=== PATIENT | male | born 1955 | race African-American/Black ===

== ENCOUNTER 2016-10-14 16:51 | Emergency (ER) | payer MEDICAID ==
[~2016-10-14] VITALS: Ht 177.8 cm; Wt 90.7 kg
[~2016-10-14 16:51] MED LIST: ALBUTEROL SULF8.5 GM INH; BACTROBAN22 G1 TOPIC; CIPRO500 MG PO; CIPROFLOXACIN500 M2 ORAL; CYCLOBENZAPRINE10 MG ORAL; HYDROCORTISONE28 G2 TP; IBUPROFEN800 MG ORAL; NKM; NORVIR100 MG ORAL; PODOFILOX3.5 ML TP; PROMETHAZINE-C118 M1 ORAL; ZYRTEC-D TABLE1 EACH ORAL
[2016-10-14 17:15] VITALS: BP 120/64
--- NOTE | 2016-10-14 17:43 | Emergency Room Report ---
History of Present Illness General Chief Complaint: Upper Respiratory Illness Source: Patient Present Illness HPI 61-year-old male presents emergency department with complaints of continued cough despite conservative treatment with cough syrup and albuterol. Patient was evaluated here over one week ago for acute viral URI. he denies fevers chills or productive cough. Patient denies any symptoms at this time. Patient has history of HIV with CD4 count over 800, viral load undetectable. Denies CP, Palpitations, LOC, AMS, dizziness, Changes in Vision, Sensation, paresthesias, or a sudden severe headache. Allergies: Coded Allergies: PENICILLINS (Verified Allergy, Severe, rash, 09/15/13) Patient History Past Medical History: see triage record, HIV Past Surgical History: none Pertinent Family History: none Immunizations: UTD Reviewed Nursing Documentation: PMH: Agreed, PSxH: Agreed Nursing Documentation-PMH Hx Cancer: No Review of Systems All Other Systems: negative except mentioned in HPI Physical Exam Vital Signs Date Time Temp Pulse Resp B/P Pulse Ox O2 Delivery O2 Flow Rate FiO2 10/14/16 17:04 98.2 92 15 119/82 96 Room Air Sp02 EP Interpretation: reviewed, normal General Appearance: no apparent distress, alert, GCS 15, non-toxic Head: normocephalic, atraumatic Eyes: bilateral eye PERRL, bilateral eye normal inspection ENT: hearing grossly normal, normal pharynx, no angioedema, normal voice Neck: full range of motion, supple/symm/no masses Respiratory: chest non-tender, lungs clear, normal breath sounds, no rhonchi, no respiratory distress, no retraction, no accessory muscle use, speaking full sentences, wheezing - diffuse wheezes bilaterally Cardiovascular #1: regular rate, rhythm, no edema Gastrointestinal: normal bowel sounds, non tender, soft, no guarding, no rebound Rectal: deferred Genitourinary: normal inspection, no CVA tenderness Musculoskeletal: back normal, gait/station normal, normal range of motion, non- tender, no calf tenderness Neurologic: alert, oriented x3, responsive, motor strength/tone normal, sensory intact, speech normal Psychiatric: judgement/insight normal, memory normal, mood/affect normal, no suicidal/homicidal ideation Skin: normal color, no rash, warm/dry, well hydrated Lymphatic: no adenopathy Medical Decision Making PA Attestation Dr. perla is my supervising Physician whom patient management has been discussed with. Diagnostic Impression: Primary Impression: Atypical pneumonia ER Course Pt. presents to the emergency department for continued cough x1 week despite conservative treatment including cough syrup and albuterol Ddx considered but are not limited to URI, pneumonia, PE, strep pharyngitis, meningitis, atypical pneumonia Vital signs: Pt. is afebrile, the remaining VS are WNL H&PE are most consistent with Atypical pneumonia due to persistent symptoms despite conservative treatment times one week, in addition to history of immune compromise will treat with antibiotics ORDERS: none required at this time, the diagnosis is clinical - pt non-toxic , NAD ED INTERVENTIONS: None required at this time. --PT. EDUCATION: Discussed pt pt. reasoning for rx'n abx and the importance of follow up with his PCP. DISCHARGE: At this time pt. is stable for d/c to home. Will provide printed patient care instructions, and any necessary prescriptions. Care plan and follow up instructions have been discussed with the patient prior to discharge. Last Vital Signs Date Time Temp Pulse Resp B/P Pulse Ox O2 Delivery O2 Flow Rate FiO2 10/14/16 17:15 98.0 88 17 120/64 96 Room Air Disposition: HOME, SELF-CARE Condition: Stable Scripts D-Methorphan Hb/Prometh Hcl* (PROMETHAZINE-DM SYRUP*) 118 Ml Syrup 5 ML ORAL Q6H Y for For Cough, #118 ML 0 Refills Prov: Nessa Dixon 10/14/16 Azithromycin (AZITHROMYCIN) 500 Mg Tablet 500 MG ORAL DAILY for 5 Days, TAB Prov: Nessa Dixon 10/14/16 Patient Instructions: Upper Respiratory Infection, Adult Additional Instructions: Take medications as directed. continue to take albuterol for wheezing. Follow up with PCP in 3-5 days Return sooner to ED if new symptoms occur, or current symptoms become worse. Nessa Dixon Oct 14, 2016 17:43
[2016-10-14] MEDS ORDERED: PROMETHAZINE-D118 ML ORAL (17:44)
[2016-10-14] MEDS ORDERED: AZITHROMYCIN500 MG ORAL (17:44)
[2016-10-14 17:55] VITALS: BP 126/62
== END 2016-10-14 17:55 | disposition home or self-care (01) ==
LOC: EMR 17:55
DX: J18.9 Pneumonia, unspecified organism (principal); Z88.0 Allergy status to penicillin
CPT/HCPCS: 99284

== ENCOUNTER 2017-06-15 09:35 | Inpatient (IN) | payer OTHER ==
[2017-06-15] VITALS (14 sets, daily range): BP systolic 128–151; BP diastolic 76–94
[~2017-06-15] VITALS: Ht 177.8 cm; Wt 86.6 kg
[~2017-06-15 09:35] MED LIST changes: +AZITHROMYCIN500 MG ORAL; +PROMETHAZINE-D118 ML ORAL
[2017-06-15] MEDS ORDERED: Thrombin 5000 units TOPIC ONE (09:53)
[2017-06-15] MEDS ORDERED: Bupivacaine w/Epi 0.5% 30ml Vial INJ ONE (09:54)
[2017-06-15] MEDS ORDERED: Vancomycin 1gm inj IVPB ONE (09:54)
[2017-06-15] MEDS ORDERED: Bacitracin 50000 Units Vial ONE (09:55)
[2017-06-15] MEDS ORDERED: Thrombin 5000 units spray kit TOPIC ONE (09:55)
[2017-06-15] MEDS ORDERED: Gelfoam Absorbable 1gm powder pkt TOPIC ONE (09:55)
[2017-06-15] MEDS ORDERED: Neostigmine 1mg/ml 10ml Inj ONE (11:00)
[2017-06-15] MEDS ORDERED: Ketorolac 30mg Inj ONE (11:00)
[2017-06-15] MEDS ORDERED: fentaNYL 100 mcg/2 mL IV ONE (11:00)
[2017-06-15] MEDS ORDERED: Midazolam 2mg/2ml Inj ONE (11:00)
[2017-06-15] MEDS ORDERED: Propofol 10mg/ml 100ml btl IV ONE (11:00)
[2017-06-15] MEDS ORDERED: Succinylcholine 20mg/ml 10ml vial ONE (11:00)
[2017-06-15] MEDS ORDERED: LR 1000ml ONE (11:00)
[2017-06-15] MEDS ORDERED: Sterile Water Irrig 1000ml IRRIG ONE (11:00)
[2017-06-15] MEDS ORDERED: Zemuron 50mg/5ml Inj IV ONE (11:00)
[2017-06-15] MEDS ORDERED: NS Irrig 1000ml ONE (11:00)
[2017-06-15] MEDS ORDERED: Morphine Sulfate 10mg/ml Inj ONE (11:00)
[2017-06-15] MEDS ORDERED: Glycopyrrolate 0.2mg/ml 1ml Vial ONE (11:00)
[2017-06-15] MEDS ORDERED: Hydromorphone 0.5mg/0.5ml inj IVP PRN (12:45)
[2017-06-15] MEDS ORDERED: DiphenhydrAMINE 50mg/ml Inj IVP PRN (12:45)
[2017-06-15] MEDS ORDERED: Midazolam 2mg/2ml Inj IVP PRN (12:45)
[2017-06-15] MEDS ORDERED: Meperidine 25mg/0.5ml Inj (FOR RIGORS ONLY) IV PRN (12:45)
[2017-06-15] MEDS ORDERED: fentaNYL 100 mcg/2 mL IV PRN (12:45)
[2017-06-15] MEDS ORDERED: Ketorolac 30mg Inj IV PRN (12:45)
[2017-06-15] MEDS ORDERED: LR 1000ml 1,000 ML IVLG SCH (12:45)
--- NOTE | 2017-06-15 12:45 | Anethesia Preoperative Eval ---
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 LONG TIME AGO PER PATIENT Medications: see eMAR Past Medical History Cardiovascular: Reports: HTN - mild, Denies: CAD, TN, valve dz, arrhythmia, other Pulmonary: Denies: asthma, COPD, BALWINDER, other Gastrointestinal/Genitourinary: Reports: GERD, Denies: CRI, ESRD, other Neurologic/Psychiatric: Reports: other - chronic pain, Denies: dementia, CVA, depression/anxiety, TIA Endocrine: Denies: DM, hypothyroidism, steroids, other HEENT: Denies: cataract (L), cataract (R), glaucoma, [place] (L), [place] [place] (R), other Hematology/Immune: Reports: other - HIV-AIDS, Denies: anemia, DVT, bleeding disorder Musculoskeletal/Integumentary: Denies: OA, RA, DJD, DDD, edema, other PMH Narrative: as above PSxH Narrative: bilateral lower extremities ORIF Anesthesia Pre-op Phys. Exam Physician Exam Last Vital Signs Date Time Temp Pulse Resp B/P (MAP) Pulse Ox O2 Delivery O2 Flow Rate FiO2 06/15/17 10:16 98.8 72 19 133/94 96 Room Air Constitutional: NAD Neurologic: CN 2-12 intact Cardiovascular: RRR, no M/R/G Respiratory: CTA Gastrointestinal: S/NT/ND Airway Exam Mallampati Score: Class II MO: full Neck: flexible Teeth: missing Dentures: upper, lower Anesthesia Pre-op A/P Labs See chart Studies Pre-op Studies: EKG - NSR, CXR - WNL Risk Assessment & Plan Assessment: ASA 3 Plan: GA with ETT prone position, neuromonitoring Status Change Before Surgery: No Pre-Antibiotics Drug: Ancef 2gr. Given Within 1 Hr of Incision: Yes Time Given: 12:16 MAI VARNER M.D. Jun 15, 2017 12:44
--- NOTE | 2017-06-15 13:24 | Pre-Procedure Note/Attestation ---
Pre-Procedure Note/Attestation Complete Prior to Procedure Planned Procedure: left Procedure Narrative: L45 microdecompression and microdiscectomy Indications for Procedure Pre-Operative Diagnosis: hnp with lumbar radic Attestation I attest that I discussed the nature of the procedure; its benefits; risks and complications; and alternatives (and the risks and benefits of such alternatives ), prior to the procedure, with the patient (or the patient's legal commercial sales representative). I attest that, if there was a reasonable possibility of needing a blood transfusion, the patient (or the patient's legal commercial sales representative) was given the [facility] standardized written summary, pursuant to the Óscar Greenleaf Blood Safety Act ([place] Health and Safety Code # 1645, as amended). I attest that I re-evaluated the patient just prior to the surgery and that there has been no change in the patient's H&P, except as documented below: LEILA HUFF Jun 15, 2017 13:24
--- NOTE | 2017-06-15 13:25 | Brief Operative Note ---
Immediate Post Operative Note Operative Note Pre-op Diagnosis: hnp with lumbar radic Procedure: l l45 microdecompression and microdiscectomy Post-op Diagnosis: hnp with lumbar radiculopathy Findings: consistent w/pre-op dx studies Surgeon: iqra Road Engineer: she smith nurse assist Anesthesiologist: adilia Anesthesia: general Specimen: none Complications: none Condition: stable Fluids: 1 liter Estimated Blood Loss: minimal - 10cc Drains: none Implant(s) used?: No LEILA HUFF Jun 15, 2017 13:25
[2017-06-15] MEDS ORDERED: HYDROmorphone 1mg/ml Carpuject SUBQ PRN (13:30)
[2017-06-15] MEDS ORDERED: Norco 7.5mg/325mg tab ORAL PRN (13:30)
[2017-06-15] MEDS ORDERED: Naloxone 0.4mg/ml Inj IVP PRN (13:30)
[2017-06-15] MEDS ORDERED: HYDROmorphone 1mg/ml Carpuject IVP PRN (13:30)
--- NOTE | 2017-06-15 14:12 | Immediate Post-Op Evaluation ---
Immediate Post-Op Evalulation Immediate Post-Op Evalulation Procedure: L4-L5 laminotomy with discectomy Date of Evaluation: Jun 15, 2017 Time of Evaluation: 14:10 IV Fluids: 1400 Blood Products: none Estimated Blood Loss: <50 Urinary Output: 150 Blood Pressure Systolic: 132 Blood Pressure Diastolic: 72 Pulse Rate: 86 Respiratory Rate: 20 O2 Sat by Pulse Oximetry: 99 Temperature (Fahrenheit): 97.4 Pain Score (1-10): 2 Nausea: No Vomiting: No Complications none Patient Status: reacts, patent, extubated, none Hydration Status: adequate MAI VARNER M.D. Jun 15, 2017 14:12
[2017-06-15] MEDS ORDERED: DuoNeb 0.5-3(2.5)mg/3ml neb HHN PRN (16:15)
[2017-06-15] MEDS ORDERED: Promethazine/Codeine 5ml UD ORAL PRN (16:15)
[2017-06-15] MEDS: D5 1/2NS 1,000 ML IV SCH (17:13)
[2017-06-15] MEDS ORDERED: Ritonavir 100mg tab ORAL SCH (18:00)
[2017-06-15] MEDS: Docusate 100mg cap ORAL SCH (18:17)
[2017-06-15] MEDS: ceFAZolin sod 1 GM in D5W 55 ML IV SCH (21:33)
[2017-06-16] VITALS: BP 132/73
[2017-06-16 04:00] VITALS: BP 117/78
[2017-06-16] MEDS: ceFAZolin sod 1 GM in D5W 55 ML IV SCH ×2 (04:04→11:28)
[2017-06-16] MEDS: D5 1/2NS 1,000 ML IV SCH ×4 (04:04→22:15)
[2017-06-16 07:33] LABS: BASOPHILS % (AUTO) 0.7 % (0.0-2.0); EOSINOPHILS % (AUTO) 1.6 % (0.0-3.0); LYMPHOCYTES % (AUTO) 17.5 % (20.0-45.0); MEAN CORPUSCULAR HEMOGLOBIN 34.6 PG (27.0-31.0); MEAN CORPUSCULAR HGB CONC 34.5 G/DL (32.0-36.0); MEAN CORPUSCULAR VOLUME 100 FL (80-99); MEAN PLATELET VOLUME 7.8 FL (6.5-10.1); MONOCYTES % (AUTO) 10.2 % (1.0-10.0); PLATELET COUNT 175 K/UL (150-450); RED CELL DISTRIBUTION WIDTH 12.1 % (11.6-14.8); WHITE BLOOD COUNT 4.3 K/UL (4.8-10.8)
[2017-06-16 08:05] LABS: ALANINE AMINOTRANSFERASE 12 U/L (3-41); ALBUMIN/GLOBULIN RATIO 1.3 (1.0-2.7); ANION GAP 8 (5-15); ASPARTATE AMINO TRANSFERASE 15 U/L (5-40); CALCIUM 8.8 mg/dL (8.6-10.2); CARBON DIOXIDE 29 mEQ/L (20-30); CHLORIDE 101 mEQ/L (98-107); GLOMERULAR FILTRATION RATE > 60 mL/min (>60); HEMOLYSIS 5; POTASSIUM 3.7 mEQ/L (3.4-4.9); SODIUM 138 mEQ/L (135-145); TOTAL PROTEIN 6.5 g/dL (6.6-8.7)
[2017-06-16 08:23] VITALS: BP 115/76
[2017-06-16] MEDS: Docusate 100mg cap ORAL SCH ×2 (08:36→17:24)
--- NOTE | 2017-06-16 09:57 | 48 Hour Post Anesthesia Eval ---
Post Anesthesia Evaluation Procedure: L4-L5 laminotomy with discectomy Date of Evaluation: Jun 16, 2017 Time of Evaluation: 09:55 Blood Pressure Systolic: 128 0: 72 Pulse Rate: 68 Respiratory Rate: 20 Temperature (Fahrenheit): 97.6 O2 Sat by Pulse Oximetry: 98 Airway: patent Nausea: No Vomiting: No Pain Intensity: 3 Hydration Status: adequate Cardiopulmonary Status: stable Mental Status/LOC: patient returned to baseline Follow-up Care/Observations: n/a Post-Anesthesia Complications: none Follow-up care needed: N/A MAI VARNER M.D. Jun 16, 2017 09:57
[2017-06-16 11:40] VITALS: BP 108/56
--- NOTE | 2017-06-16 14:09 | Consultation ---
Consult Note Consult Note Patient seen and examined. Dictation # [id number] Juan J Gonzalez MD Jun 16, 2017 14:09
--- NOTE | 2017-06-16 14:12 | General Progress Note ---
Assessment/Plan Status: stable Assessment/Plan 1- Lumbar Spondylosis: post Discectomy 2- HIV 3- Pain management Plan: Medicably stable. HIV management deferred to outpatient current management per Dr Mera Subjective ROS Limited/Unobtainable: No Constitutional: Reports: no symptoms HEENT: Reports: no symptoms Cardiovascular: Reports: no symptoms Allergies: Coded Allergies: PENICILLINS (Verified Allergy, Severe, RASH, 06/15/17) DONT REMEMBER REACTION. LONG TIME AGO PER PATIENT Objective Last 24 Hour Vital Signs Date Time Temp Pulse Resp B/P (MAP) Pulse Ox O2 Delivery O2 Flow Rate FiO2 06/16/17 11:40 97.6 68 21 108/56 92 Room Air 06/16/17 09:57 68 20 98 06/16/17 09:08 97.5 06/16/17 08:23 97.5 74 20 115/76 99 Room Air 06/16/17 07:25 98 Nasal Cannula 2.0 06/16/17 07:24 Nasal Cannula 2.0 06/16/17 04:00 97.2 74 18 117/78 99 Nasal Cannula 2.0 06/16/17 00:00 97.5 78 16 132/73 99 Nasal Cannula 3.0 06/15/17 20:00 97.2 80 18 128/79 100 Nasal Cannula 2.0 06/15/17 16:30 97.3 63 21 141/82 99 Nasal Cannula 06/15/17 16:00 98.1 61 20 146/83 99 Nasal Cannula 06/15/17 15:02 98.0 57 12 140/79 100 Nasal Cannula 3.0 06/15/17 14:55 68 13 151/84 100 Nasal Cannula 3.0 06/15/17 14:50 56 12 142/79 100 Nasal Cannula 3.0 06/15/17 14:45 64 14 128/79 100 Nasal Cannula 3.0 06/15/17 14:40 67 15 144/82 100 Nasal Cannula 3.0 06/15/17 14:30 64 13 139/82 100 Nasal Cannula 3.0 06/15/17 14:20 76 14 143/82 100 Nasal Cannula 3.0 06/15/17 14:12 86 20 99 06/15/17 14:10 73 16 145/91 100 Simple Mask 6.0 Intake and Output 06/16/17 06/17/17 19:00 07:00 Intake Total 895 ml Output Total 200 ml Balance 695 ml Intake Oral 340 ml IV Total 555 ml Output Urine Total 200 ml # Voids 1 Laboratory Tests 06/16/17 06:15: White Blood Count 4.3L, Red Blood Count 4.30L, Hemoglobin 14.9, Hematocrit 43.1 , Mean Corpuscular Volume 100H, Mean Corpuscular Hemoglobin 34.6H, Mean Corpuscular Hemoglobin Concent 34.5, Red Cell Distribution Width 12.1, Platelet Count 175, Mean Platelet Volume 7.8, Neutrophils (%) (Auto) 70.0, Lymphocytes (% ) (Auto) 17.5L, Monocytes (%) (Auto) 10.2H, Eosinophils (%) (Auto) 1.6, Basophils (%) (Auto) 0.7, Sodium Level 138, Potassium Level 3.7, Chloride Level 101, Carbon Dioxide Level 29, Anion Gap 8, Blood Urea Nitrogen 12, Creatinine 1.0, Estimat Glomerular Filtration Rate > 60, Glucose Level 97, Calcium Level 8.8, Total Bilirubin 0.5, Aspartate Amino Transf (AST/SGOT) 15, Alanine Aminotransferase (ALT/SGPT) 12, Alkaline Phosphatase 52, Total Protein 6.5L, Albumin 3.7, Globulin 2.8, Albumin/Globulin Ratio 1.3 Height (Feet): 5 Height (Inches): 10.00 Weight (Pounds): 191 General Appearance: WD/WN EENT: PERRL/EOMI Neck: supple Cardiovascular: normal rate Respiratory/Chest: lungs clear Abdomen: soft Extremities: other Neurologic: rn post partum II-XII grossly normal Juan J Gonzalez MD Jun 16, 2017 14:11
[2017-06-16 15:49] VITALS: BP 141/76
[2017-06-16] MEDS: Norco 5mg/325mg tab ORAL PRN ×2 (17:04→20:51)
[2017-06-16 20:00] VITALS: BP 136/79
[2017-06-16] MEDS: TRIAMCINOLONE ACETONIDE 0.1% TOPIC SCH (20:59)
[2017-06-16] MEDS: Norco 7.5mg/325mg tab ORAL PRN (22:10)
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
[2017-06-17 00:43] VITALS: BP 129/75
[2017-06-17 04:33] VITALS: BP 130/70
[2017-06-17 07:02] LABS: BASOPHILS % (AUTO) 1.5 % (0.0-2.0); EOSINOPHILS % (AUTO) 3.6 % (0.0-3.0); LYMPHOCYTES % (AUTO) 25.1 % (20.0-45.0); MEAN CORPUSCULAR HEMOGLOBIN 33.3 PG (27.0-31.0); MEAN CORPUSCULAR HGB CONC 33.7 G/DL (32.0-36.0); MEAN CORPUSCULAR VOLUME 99 FL (80-99); MEAN PLATELET VOLUME 7.7 FL (6.5-10.1); MONOCYTES % (AUTO) 14.4 % (1.0-10.0); NEUTROPHILS % (AUTO) 55.5 % (45.0-75.0); PLATELET COUNT 191 K/UL (150-450); RED BLOOD COUNT 4.27 M/UL (4.70-6.10); RED CELL DISTRIBUTION WIDTH 11.9 % (11.6-14.8); WHITE BLOOD COUNT 4.2 K/UL (4.8-10.8)
[2017-06-17 07:23] LABS: ALANINE AMINOTRANSFERASE 14 U/L (3-41); ALBUMIN/GLOBULIN RATIO 1.1 (1.0-2.7); ANION GAP 7 (5-15); ASPARTATE AMINO TRANSFERASE 17 U/L (5-40); CALCIUM 8.6 mg/dL (8.6-10.2); CARBON DIOXIDE 30 mEQ/L (20-30); CHLORIDE 105 mEQ/L (98-107); CREATININE 1.1 mg/dL (0.7-1.2); GLOMERULAR FILTRATION RATE > 60 mL/min (>60); HEMOLYSIS 4; SODIUM 142 mEQ/L (135-145); TOTAL PROTEIN 6.1 g/dL (6.6-8.7)
[2017-06-17] MEDS: Docusate 100mg cap ORAL SCH (07:53)
[2017-06-17] MEDS: Norco 7.5mg/325mg tab ORAL PRN ×2 (07:54→14:46)
[2017-06-17] MEDS: TRIAMCINOLONE ACETONIDE 0.1% TOPIC SCH (07:54)
[2017-06-17 08:00] VITALS: BP 117/77
[2017-06-17] MEDS ORDERED: NORCO 5-325 TA1 EACH ORAL (08:59)
[2017-06-17] MEDS ORDERED: NAPROSYN500 M1 ORAL (09:00)
[2017-06-17 12:00] VITALS: BP 124/77
[2017-06-17] MEDS ORDERED: NORCO 7.5-3251 EACH ORAL (12:59)
--- NOTE | 2017-06-17 15:47 | General Progress Note ---
Assessment/Plan Status: stable Assessment/Plan 1- Lumbar Spondylosis: post Discectomy 2- HIV 3- Pain management Plan: Medicably stable. HIV management deferred to outpatient current management per Dr Mera Subjective ROS Limited/Unobtainable: No Constitutional: Reports: no symptoms HEENT: Reports: no symptoms Cardiovascular: Reports: no symptoms Allergies: Coded Allergies: PENICILLINS (Verified Allergy, Severe, RASH, 06/15/17) DONT REMEMBER REACTION. LONG TIME AGO PER PATIENT Objective Last 24 Hour Vital Signs Date Time Temp Pulse Resp B/P (MAP) Pulse Ox O2 Delivery O2 Flow Rate FiO2 06/17/17 12:00 98.5 86 21 124/77 99 Room Air 06/17/17 08:53 98.1 06/17/17 08:00 98.4 78 20 117/77 98 Room Air 06/17/17 07:45 Room Air 06/17/17 07:45 97 Room Air 06/17/17 07:45 72 18 Room Air 06/17/17 04:33 98.1 83 19 130/70 95 Room Air 06/17/17 00:43 97.9 85 18 129/75 94 Room Air 06/16/17 20:04 Room Air 06/16/17 20:04 97 Room Air 06/16/17 20:04 76 18 Room Air 06/16/17 20:00 98.5 82 18 136/79 95 Nasal Cannula 06/16/17 18:04 97.6 06/16/17 15:49 97.6 74 20 141/76 98 Room Air Intake and Output 06/17/17 06/18/17 19:00 07:00 Intake Total 480 ml Balance 480 ml Intake Oral 480 ml # Voids 2 Laboratory Tests 06/17/17 05:10: White Blood Count 4.2L, Red Blood Count 4.27L, Hemoglobin 14.2, Hematocrit 42.1 , Mean Corpuscular Volume 99, Mean Corpuscular Hemoglobin 33.3H, Mean Corpuscular Hemoglobin Concent 33.7, Red Cell Distribution Width 11.9, Platelet Count 191, Mean Platelet Volume 7.7, Neutrophils (%) (Auto) 55.5, Lymphocytes (% ) (Auto) 25.1, Monocytes (%) (Auto) 14.4H, Eosinophils (%) (Auto) 3.6H, Basophils (%) (Auto) 1.5, Sodium Level 142, Potassium Level 4.0, Chloride Level 105, Carbon Dioxide Level 30, Anion Gap 7, Blood Urea Nitrogen 11, Creatinine 1.1, Estimat Glomerular Filtration Rate > 60, Glucose Level 93, Calcium Level 8.6, Total Bilirubin 0.5, Aspartate Amino Transf (AST/SGOT) 17, Alanine Aminotransferase (ALT/SGPT) 14, Alkaline Phosphatase 48, Total Protein 6.1L, Albumin 3.3L, Globulin 2.8, Albumin/Globulin Ratio 1.1 Height (Feet): 5 Height (Inches): 10.00 Weight (Pounds): 191 General Appearance: no apparent distress EENT: PERRL/EOMI Neck: supple Cardiovascular: normal rate Respiratory/Chest: lungs clear Abdomen: soft Extremities: other - minimal decreaed ROM in lumbar spine Neurologic: section leader screen printing II-XII grossly normal Juan J Gonzalez MD Jun 17, 2017 15:47
[2017-06-17] MEDS ORDERED: D5 1/2NS 1000ml IV ONE (15:59)
[2017-06-17] MEDS ORDERED: Tubing IV Secondary IV ONE (15:59)
--- NOTE | 2017-06-17 19:45 | Operative Note - Dictated ---
DATE OF OPERATION: 06/15/2017 PREOPERATIVE DIAGNOSES: L4-L5 disk protrusion with anterolisthesis and stenosis and left lower extremity radiculopathy and intermittent right lower extremity neurologic symptoms with stable spondylolisthesis at L4-L5. POSTOPERATIVE DIAGNOSES: L4-L5 disk protrusion with anterolisthesis and stenosis and left lower extremity radiculopathy and intermittent right lower extremity neurologic symptoms with stable spondylolisthesis at L4-L5. PROCEDURES PERFORMED: 1. Left-sided L4-5 interlaminar laminotomy, medial facetectomy, foraminotomy, and microdiskectomy. 2. Intraoperative use of microscope. 3. Intraoperative use of fluoroscopy. SURGEON: Michael Mera M.D. BUILDING PERFORMANCE CONSULTANT: Christina Campos, registered nurse showroom sales assistant. ANESTHESIA: General endotracheal anesthesia. ANESTHESIOLOGIST: Torito Mccormick M.D. INTRAOPERATIVE FINDINGS: Left-sided L4-5 foraminal stenosis and lateral recess stenosis, impingement, and disk protrusion. ESTIMATED BLOOD LOSS: 10 mL. INDICATIONS: This is a pleasant gentleman, who presented with low back pain with left lower extremity radiculopathy and intermittent right lower extremity neurologic symptoms. He failed nonoperative treatment and continued to have pain that affected his activities of daily living. Option for above treatment was made. Risks, alternatives, and benefits were discussed with the patient at length and the patient wished to proceed. Preoperative physical examination revealed a positive straight leg raise on the left at 45 degrees with weakness in the EHL and peroneus longus on the left side, 4/5. Risks, alternatives, and benefits were discussed with the patient at length. Risks include, but not limited to anesthesia complications including , medical complications including liver, kidney, cardiopulmonary deficits, infection, bleeding, dural tear, CSF leak, nerve root injury, pars fracture, instability, reherniation as well as continued symptoms. DESCRIPTION OF OPERATION: The patient was brought into the operating room supine on a stretcher. Subsequently, appropriate IV lines were placed and 2 g of Ancef was administered. Anesthesia was induced. The patient was successfully intubated. Sequential compression devices were placed on to the bilateral lower extremities. Bauman was placed under sterile conditions. The patient was turned prone onto the Nayan frame table. All bony prominences were well padded. The abdomen was assured to lay freely. The L4-L5 interspace was positively identified with fluoroscopy and an indelible marker was used to bess the midline. The patient was prepped and draped in usual sterile fashion. The intraoperatively sterilely draped microscope was brought into the field. An one inch incision was carried out over the L4-L5 interspace. Superficial hemostasis was achieved. The L4 and L5 laminas were located and subperiosteally dissected while leaving a facet joint capsule intact. Retractors were set in place and at this point, the radiopaque marker was placed at the level of the L5 pedicle. Lateral fluoroscopy revealed the marker to be at the L5 pedicle and the L4-L5 interspace was positively identified with the use of a high-speed drill, straight and curved curettes, as well as #2 through #5 Kerrison punches, and nerve hook, an interlaminar laminotomy, medial facetectomy, and foraminotomy was done. The ligamentum flavum was removed. There was significant compression on the thecal sac as well as the traversing and exiting nerve roots at the L4-L5 level. A foraminotomy ensued with a #2 Kerrison punch. A decompression entailed and with a #4 [place] retractor, the neural elements were carefully retracted medially and the disk protrusion was found causing impingement on the traversing and exiting nerve roots. At this point, hemostasis was achieved. With an #11 blade, a cross incision was placed into the anulus. With the use of a Thurston as well as a Peapod as well as Shannon as well as Patricia, diskectomy was carried out and all disk material was removed until the floor of the canal was flat. Disk space irrigation was used and all loose debri was removed. At this point, Valsalva 40 mmHg was done. There was no CSF leak and a complete decompression was assured in the foramina lateral recess and centrally in the central canal. Now the wound was copiously irrigated with triple antibiotic solution, 1 gram of vancomycin powder was placed. The dorsal lumbar fascia was closed with #1 Vicryl sutures in a watertight interrupted fashion. The subdermal layer was closed with 2-0 Vicryl suture. The subcuticular layer was closed with 4-0 Monocryl. The Dermabond and sterile tape and dressing was placed. All sponge, needle, and instrument counts were correct. There was no complication during the case. Final EBL was 10 mL. The patient now was turned supine, was extubated in stable condition, was taken to the recovery room in stable condition and found to be neurovascularly intact, and admitted to the hospital for monitoring. Michael Mera M.D. DR: EFRAIN JOB#: [id number] CC:
--- NOTE | 2017-06-20 11:12 | Discharge Summary ---
Discharge Summary Hospital Course Date of Admission Jun 15, 2017 at 09:35 Date of Discharge Jun 17, 2017 at 16:00 Admitting Diagnosis lumbar spondylosis Reason for Hospitalization: elective surgery HPI Robby Mcdaniel is a 62 year old male who was admitted on Jun 15, 2017 at 09:35 for lumbar spondylosis and elective surgery Consultations dr Gonzalez Procedures s/pm 06/15/[address] Mera 1. Left-sided L4-5 interlaminar laminotomy, medial facetectomy, foraminotomy, and microdiskectomy. 2. Intraoperative use of microscope. 3. Intraoperative use of fluoroscopy. Hospital Course s/p surgery course of recovery uneventful neurovascular intact incision C/D/I pain management -controlled PT eval and Rx, ambulated tolerated diet voided freely DVT GI prophylaxis ART medications resume as outpatient ( and fup with ID/HIV specialist as outpatient) surgeon cleared for dc fup woth surgeon as outpatient as advised by surgeon FINAL DIAGNOSES herniated nucleus pulposus s/p L4-L5 microdecompression and microdiscectomy L4-L5 disk protrusion with anterolisthesis, stenosis , LLE radiculopathy and intermittent right lower extremity neurologic symptoms HIV status Discharge Medications Continued Medications: Albuterol Sulfate* (Albuterol Sulfate Mdi*) 8.5 Gm Hfa.aer.ad 2 PUFF INH Q4H, #1 INH 0 Refills Cetirizine Hcl/Pseudoephedrine (Zyrtec-D Tablet) 1 Each Tab.er.12h 1 EACH ORAL Q12HR for 7 Days, #14 TAB Hydrocodone Bit/Acetaminophen 7.5-325* ([place] 7.5-325*) 1 Each Tablet 1 TAB ORAL Q8HR PRN for For Pain, #30 TAB 0 Refills Ritonavir* (Norvir*) 100 Mg Capsule Unknown Dose ORAL TWICE A DAY, #60 CAP Discontinued Medications: Azithromycin (Azithromycin) 500 Mg Tablet 500 MG ORAL DAILY for 5 Days, TAB Codeine/Promethazine Hcl* (Promethazine-Codeine Syrup*) 118 Ml Syrup 5 ML ORAL Q6H PRN for For Cough, #200 ML 0 Refills D-Methorphan Hb/Prometh Hcl* (Promethazine-Dm Syrup*) 118 Ml Syrup 5 ML ORAL Q6H PRN for For Cough, #118 ML 0 Refills Hydrocodone Bit/Acetaminophen 5-325* ([place] 5-325*) 1 Each Tablet 1 TAB ORAL Q6H PRN for For Pain, #10 TAB 0 Refills Naproxen* (Naprosyn*) 500 Mg Tablet 500 MG ORAL TWICE A DAY, TAB Discharge Condition Upon Discharge: stable Discharge Disposition Patient was discharged to Home (01) Discharge Diagnoses: Discharge Instructions Discharge Instructions Special Instructions I have been assigned to complete a D/C Summary on this account. I was not involved in the patient management Yesi Bernal NP ([place]) Jun 20, 2017 11:12
== END 2017-06-17 16:00 | disposition home or self-care (01) | DRG 518 ==
LOC: SDSOVERFLO 09:35 → 3E 15:30
PROC: 01NB0ZZ Release Lumbar Nerve, Open Approach (ICD-10-PCS; principal; 2017-06-15 11:30)
PROC: 0SB20ZZ Excision of Lumbar Vertebral Disc, Open Approach (ICD-10-PCS; principal; 2017-06-15 11:30)
DX: M51.16 Intervertebral disc disorders with radiculopathy, lumbar region (principal); B20 Human immunodeficiency virus [HIV] disease; M48.06 Spinal stenosis, lumbar region; M43.16 Spondylolisthesis, lumbar region; Z87.891 Personal history of nicotine dependence; Z88.0 Allergy status to penicillin; V89.2XXS Person injured in unspecified motor-vehicle accident, traffic, sequela
CPT/HCPCS: 36415; 72020; 76000; 80053; 85025; 87081; 94003; 94150; 94664; 94760; J2250; J2405; J2710

== ENCOUNTER 2017-09-11 05:42 | Emergency (ER) | payer MEDICAID, OTHER ==
[~2017-09-11] VITALS: Ht 177.8 cm; Wt 88.5 kg
[~2017-09-11 05:42] MED LIST changes: +NAPROSYN500 M1 ORAL; +NORCO 5-325 TA1 EACH ORAL; +NORCO 7.5-3251 EACH ORAL
[2017-09-11 05:51] VITALS: BP 135/79
[2017-09-11] MEDS ORDERED: GENVOYA TABLET1 EACH PO (05:52)
[2017-09-11] MEDS ORDERED: ADULT WAL-100 MG/5 M ORAL (07:07)
[2017-09-11 07:11] VITALS: BP 138/71
--- NOTE | 2017-09-11 10:58 | Diagnostic Imaging Report ---
Indication: Dyspnea Comparison: 05/08/15 A single view chest radiograph was obtained. Findings: Cardiomediastinal appearance is within normal limits for age. Pulmonary vascularity is appropriate. The diaphragmatic contour is smooth and costophrenic angles are sharp. No pleural effusions are identified. The bones are unremarkable. Impression: No acute findings
--- NOTE | 2017-09-12 18:38 | Cardiology Report ---
APPROVED REPORT EKG Measurement Heart [id number] Normal sinus rhythm Normal ECG
--- NOTE | 2017-09-13 07:31 | Emergency Room Report ---
History of Present Illness General Chief Complaint: Upper Respiratory Illness Present Illness HPI Patient is a 62-year-old male presented after increased cough. The patient reportedly had been ill for approximately 3 days. He had intermittent cough. He reports having some increased sputum production. He had prior history of pneumonia and HIV. He had not been having a fever. He denied any vomiting or diarrhea. Patient gradual onset of symptoms Allergies: Coded Allergies: PENICILLINS (Verified Allergy, Severe, RASH, 06/15/17) DONT REMEMBER REACTION. LONG TIME AGO PER PATIENT Patient History Past Medical History: see triage record Reviewed Nursing Documentation: PMH: Agreed, PSxH: Agreed Nursing Documentation-PMH Hx Cardiac Problems: No - HIV+ Hx Cancer: No Hx Gastrointestinal Problems: No Hx Neurological Problems: No Review of Systems All Other Systems: negative except mentioned in HPI Physical Exam Vital Signs Date Time Temp Pulse Resp B/P (MAP) Pulse Ox O2 Delivery O2 Flow Rate FiO2 09/11/17 05:47 97.2 74 18 135/79 95 Room Air Sp02 EP Interpretation: reviewed, normal General Appearance: normal inspection, well appearing, no apparent distress, alert, GCS 15 Head: atraumatic ENT: normal ENT inspection, hearing grossly normal, normal voice Neck: normal inspection, full range of motion, supple, no bony tend Respiratory: normal inspection, lungs clear, normal breath sounds, no respiratory distress, no retraction, no wheezing Cardiovascular #1: regular rate, rhythm, no edema Gastrointestinal: normal inspection, normal bowel sounds, non tender, soft, no guarding, no hernia Genitourinary: no CVA tenderness Musculoskeletal: normal inspection, back normal, normal range of motion Neurologic: normal inspection, alert, responsive, speech normal Psychiatric: normal inspection, judgement/insight normal, mood/affect normal Skin: normal inspection, normal color, no rash Medical Decision Making Diagnostic Impression: Primary Impression: Upper respiratory infection ER Course Patient presented for cough. Differential diagnosis included but was not limited to bronchitis, pneumonia, pulmonary embolism, pericarditis, asthma, foreign body. Patient's benign exam and does not appear to require any laboratory testing at this time. Patient presented upper respiratory infection and doesn not appear to require antibiotics at this time.The patient is advised to follow up with primary care doctor in 1-2 days for reevaluation. Patient is advised to return if any worsening condition or if any changes in status that are concerning. EKG Diagnostic Results Rate: normal Rhythm: NSR ST Segments: no acute changes Chest X-Ray Diagnostic Results Chest X-Ray Diagnostic Results : Chest X-Ray Ordered: Yes # of Views/Limited/Complete: 1 View Indication: Shortness of Breath EP Interpretation: Yes PA Xray: Interpretation reviewed Interpretation: no consolidation, no effusion, no pneumothorax, no acute cardiopulmonary disease Impression: No acute disease Electronically Signed by: Electronically signed by Dr. Deepak Bullock M.D. Last Vital Signs Date Time Temp Pulse Resp B/P (MAP) Pulse Ox O2 Delivery O2 Flow Rate FiO2 09/11/17 07:11 97.5 71 16 138/71 99 Room Air Status: improved Disposition: HOME, SELF-CARE Condition: Stable Scripts Guaifenesin* (ADULT WAL-TUSSIN*) 100 Mg/5 Ml Liquid 10 ML ORAL Q4H, #120 ML Prov: Deepak Bullock 09/11/17 Patient Instructions: Upper Respiratory Infection, Adult Deepak Bullock Sep 13, 2017 07:30
== END 2017-09-11 07:11 | disposition home or self-care (01) ==
LOC: EMR 06:07
DX: J06.9 Acute upper respiratory infection, unspecified (principal); Z88.0 Allergy status to penicillin
CPT/HCPCS: 71010; 93005; 99283

== ENCOUNTER 2018-08-12 18:04 | Emergency (ER) | payer MEDICAID ==
[~2018-08-12] VITALS: Ht 175.3 cm; Wt 89.4 kg
[~2018-08-12 18:04] MED LIST changes: +ADULT WAL-100 MG/5 M ORAL; +GENVOYA TABLET1 EACH PO
[2018-08-12 18:10] VITALS: BP 131/87
--- NOTE | 2018-08-12 18:34 | Emergency Room Report ---
History of Present Illness General Chief Complaint: Animal Bite Source: Patient Present Illness HPI 43-year-old male presents to the emergency department complaining of 3 very itchy insect bites to which on the right forearm and the third on the left elbow. Patient reports lesions occurred overnight. Patient reports progressive swelling and erythema especially around 1 insect bite in particular. Patient states he has been doing his best not to scratch. Patient reports history of HIV. He states he's been taking his medications regularly and has had normal CD4 counts and his last visits. Patient states he is not sure if he is up-to-date with tetanus he states he is up-to-date with his flu shot.Pt. denies fevers, chills or swollen tender lymph nodes. Denies lesions/ rashes elsewhere on the body. Denies new medications or body washes or creams. Denies swelling of the lips, tongue , throat or airway. Denies wheezing, or shortness of breath. Denies recent travel, recent illness or ill contacts. denies blisters, oral lesions, or sloughing of the skin Allergies: Coded Allergies: PENICILLINS (Verified Allergy, Severe, RASH, 06/15/17) DONT REMEMBER REACTION. LONG TIME AGO PER PATIENT Patient History Past Medical History: see triage record Past Surgical History: none Pertinent Family History: none Reviewed Nursing Documentation: PMH: Agreed; PSxH: Agreed Nursing Documentation-PMH Past Medical History: No History, Except For Hx Cardiac Problems: No - HIV+ Hx Cancer: No Hx Gastrointestinal Problems: No Hx Neurological Problems: No Review of Systems All Other Systems: negative except mentioned in HPI Physical Exam Vital Signs Date Time Temp Pulse Resp B/P (MAP) Pulse Ox O2 Delivery O2 Flow Rate FiO2 08/12/18 18:10 97.6 74 16 131/87 95 Room Air Sp02 EP Interpretation: reviewed, normal General Appearance: no apparent distress, alert, GCS 15, non-toxic Head: normocephalic, atraumatic Eyes: bilateral eye normal inspection, bilateral eye PERRL ENT: hearing grossly normal, normal voice Neck: full range of motion Respiratory: lungs clear, normal breath sounds, speaking full sentences Cardiovascular #1: regular rate, rhythm, normal capillary refill Cardiovascular #2: 2+ radial (R), 2+ radial (L) Musculoskeletal: back normal, gait/station normal, normal range of motion Neurologic: alert, oriented x3, responsive, motor strength/tone normal, sensory intact, normal gait, speech normal, grossly normal Psychiatric: judgement/insight normal Skin: warm/dry, well hydrated, other - three discrete lesions. localized circular areas of erythema, warmth and induration, some excoriations noted. the right forearm has the largest. no palpable fluctuance, blisters or vessicles. Medical Decision Making PA Attestation Dr. Bullock is my supervising Physician whom patient management has been discussed with. Diagnostic Impression: Primary Impression: Insect bites of multiple sites, infected ER Course 43-year-old male presents to the emergency department complaining of 3 very itchy insect bites to which on the right forearm and the third on the left elbow. Patient reports lesions occurred overnight. Patient reports progressive swelling and erythema especially around 1 insect bite in particular. Patient states he has been doing his best not to scratch. Patient reports history of HIV. He states he's been taking his medications regularly and has had normal CD4 counts and his last visits. Patient states he is not sure if he is up-to-date with tetanus he states he is up-to-date with his flu shot.Pt. denies fevers, chills or swollen tender lymph nodes. Denies lesions/ rashes elsewhere on the body. Denies new medications or body washes or creams. Denies swelling of the lips, tongue , throat or airway. Denies wheezing, or shortness of breath. Denies recent travel, recent illness or ill contacts. denies blisters, oral lesions, or sloughing of the skin Ddx considered but are not limited to cellulitis, scabies, insect bites, tic bites, spider bites, contact dermatitis, Drug reaction, allergic reaction, fungal infection, lice. Vital signs: are WNL, pt. is afebrile H&PE are most consistent with insect bites , one with secondary bacterial infection. ORDERS: none required at this time, the diagnosis is clinical ED INTERVENTIONS: -Hydrocortisone cream TP. -Tdap vaccination administered. DISCHARGE: At this time pt. is stable for d/c to home. Will provide printed patient care instructions, and any necessary prescriptions. Care plan and follow up instructions have been discussed with the patient prior to discharge. Last Vital Signs Date Time Temp Pulse Resp B/P (MAP) Pulse Ox O2 Delivery O2 Flow Rate FiO2 08/12/18 18:12 97.5 75 20 131/87 94 Room Air Disposition: HOME, SELF-CARE Condition: Stable Patient Instructions: Insect Bite, [id number] Additional Instructions: Take medications as directed. Follow up with a Primary Care Provider in 3-5 days, even if your symptoms have resolved. --Please review list of primary care clinics, if you do not already have a primary care provider Return sooner to ED if new symptoms occur, or current symptoms become worse. - Please note that this Emergency Department Report was dictated using [employer] software engineer technology software, occasionally this can lead to erroneous entry secondary to interpretation by the dictation equipment. Nessa Dixon Aug 12, 2018 18:34
[2018-08-12] MEDS ORDERED: MUPIROCIN22 GM TOPIC (18:44)
[2018-08-12] MEDS ORDERED: CEPHALEXIN500 MG ORAL (18:44)
[2018-08-12] MEDS ORDERED: Tetanus/Diptheria/Pertussis Vaccine 0.5ml Syr IM ONE (18:45)
[2018-08-12 18:58] VITALS: BP 131/87
== END 2018-08-12 18:59 | disposition home or self-care (01) ==
LOC: EMR 18:26
DX: S50.861A Insect bite (nonvenomous) of right forearm, initial encounter (principal); S50.362A Insect bite (nonvenomous) of left elbow, initial encounter; L08.9 Local infection of the skin and subcutaneous tissue, unspecified; W57.XXXA Bitten or stung by nonvenomous insect and other nonvenomous arthropods, initial encounter; Y92.9 Unspecified place or not applicable; Z23 Encounter for immunization; Z88.0 Allergy status to penicillin
CPT/HCPCS: 90471; 90715; 99283

== ENCOUNTER 2018-10-10 15:14 | Emergency (ER) | payer MEDICAID ==
[~2018-10-10] VITALS: Ht 175.3 cm; Wt 89.4 kg
[~2018-10-10 15:14] MED LIST changes: +CEPHALEXIN500 MG ORAL; +MUPIROCIN22 GM TOPIC
[2018-10-10] MEDS ORDERED: LEVAQUIN750 MG ORAL (15:29)
[2018-10-10 15:33] VITALS: BP 158/88
[2018-10-10 16:10] LABS: BASOPHILS % (AUTO) 1.8 % (0.0-2.0); EOSINOPHILS % (AUTO) 1.9 % (0.0-3.0); HEMATOCRIT 44.2 % (42.0-52.0); HEMOGLOBIN 15.1 G/DL (14.2-18.0); LYMPHOCYTES % (AUTO) 22.9 % (20.0-45.0); MEAN CORPUSCULAR VOLUME 92 FL (80-99); MONOCYTES % (AUTO) 6.4 % (1.0-10.0); PLATELET COUNT 190 K/UL (150-450); RED BLOOD COUNT 4.78 M/UL (4.70-6.10); WHITE BLOOD COUNT 5.2 K/UL (4.8-10.8)
[2018-10-10] MEDS ORDERED: Ketorolac 30mg Inj IV ONE (16:15)
[2018-10-10] MEDS ORDERED: Ketorolac 30mg Inj ONE (16:17)
[2018-10-10 16:24] LABS: ANION GAP 10 mmol/L (5-15); BLOOD UREA NITROGEN 13 mg/dL (7-18); CALCIUM 9.6 MG/DL (8.5-10.1); CARBON DIOXIDE 26 MMOL/L (21-32); CHLORIDE 102 MMOL/L (98-107); CREATININE 1.3 MG/DL (0.55-1.30); SODIUM 138 MMOL/L (136-145)
[2018-10-10 16:30] LABS: ALANINE AMINOTRANSFERASE 35 U/L (12-78); ALBUMIN 3.6 G/DL (3.4-5.0); ALBUMIN/GLOBULIN RATIO 0.9 (1.0-2.7); ALKALINE PHOSPHATASE 73 U/L (46-116); ASPARTATE AMINO TRANSFERASE 20 U/L (15-37); BILIRUBIN,TOTAL 0.5 MG/DL (0.2-1.0)
--- NOTE | 2018-10-10 16:49 | Emergency Room Report ---
History of Present Illness General Chief Complaint: Upper Respiratory Illness Source: Patient Present Illness HPI 43-year-old male presents to the emergency department complaining of upper respiratory symptoms for over one week with acute onset today of feeling nauseated,and lightheaded/faint. Patient states that he was evaluated by his PCP yesterday and placed on Levaquin for possible pneumonia. Patient denies fevers or chills he reports persistent cough with some mucus production. Patient states he has a history of immunocompromise as he is HIV positive. Patient states his only current medications are to antivirals. He denies recent travel he reports multiple ill contacts. he reports some body aches. He denies headache, sore throat, photophobia, neck pain or stiffness. Denies rashes or joint pain. Denies swollen tender lymph nodes. He reports that he has a history of chronic low back pain following an accident several years ago and that his persistent coughing has aggravated his back pain to a 7/10 in severity. Patient denies new trauma or fall he denies recent spinal procedures a history of neoplastic disease. Denies saddle anesthesia, urinary incontinence or retention. Allergies: Coded Allergies: PENICILLINS (Verified Allergy, Severe, RASH, 06/15/17) DONT REMEMBER REACTION. LONG TIME AGO PER PATIENT Patient History Past Medical History: see triage record Past Surgical History: none Pertinent Family History: none Immunizations: UTD Reviewed Nursing Documentation: PMH: Agreed; PSxH: Agreed Nursing Documentation-PMH Hx Cardiac Problems: No - HIV+ Hx Cancer: No Hx Gastrointestinal Problems: No Hx Neurological Problems: No Review of Systems All Other Systems: negative except mentioned in HPI Physical Exam Vital Signs Date Time Temp Pulse Resp B/P (MAP) Pulse Ox O2 Delivery O2 Flow Rate FiO2 10/10/18 15:19 97.3 69 20 126/86 97 Room Air 10/10/18 15:33 97 Sp02 EP Interpretation: reviewed, normal General Appearance: normal inspection, well appearing, no apparent distress, alert, GCS 15, non-toxic Head: normocephalic, atraumatic Eyes: bilateral eye normal inspection, bilateral eye PERRL ENT: hearing grossly normal, normal pharynx, normal voice, uvula midline, moist mucus membranes Neck: full range of motion Respiratory: chest non-tender, lungs clear, normal breath sounds, no respiratory distress, no accessory muscle use, no wheezing, speaking full sentences Cardiovascular #1: regular rate, rhythm, no edema, normal capillary refill Gastrointestinal: normal bowel sounds, non tender, soft Genitourinary: normal inspection, no CVA tenderness Musculoskeletal: back normal, gait/station normal, normal range of motion, tender - Left lumbar paraspinal ttp, some on the right as well. no midline ttp. no obvious deformity. Neurologic: alert, oriented x3, responsive, motor strength/tone normal, sensory intact, normal gait, speech normal, grossly normal Psychiatric: judgement/insight normal Skin: normal color, no rash, warm/dry, well hydrated Medical Decision Making PA Attestation Dr. Moe is my supervising Physician whom patient management has been discussed with. Diagnostic Impression: Primary Impression: Upper respiratory infection Qualified Codes: J06.9 - Acute upper respiratory infection, unspecified Additional Impression: Acute exacerbation of chronic low back pain ER Course 43-year-old male presents to the emergency department complaining of upper respiratory symptoms for over one week with acute onset today of feeling nauseated,and lightheaded/faint. Patient states that he was evaluated by his PCP yesterday and placed on Levaquin for possible pneumonia. Patient denies fevers or chills he reports persistent cough with some mucus production. Patient states he has a history of immunocompromise as he is HIV positive. Patient states his only current medications are to antivirals. He denies recent travel he reports multiple ill contacts. he reports some body aches. He denies headache, sore throat, photophobia, neck pain or stiffness. Denies rashes or joint pain. Denies swollen tender lymph nodes. He reports that he has a history of chronic low back pain following an accident several years ago and that his persistent coughing has aggravated his back pain to a 7/10 in severity. Patient denies new trauma or fall he denies recent spinal procedures a history of neoplastic disease. Denies saddle anesthesia, urinary incontinence or retention. Ddx considered but are not limited to URI, pneumonia, PE, strep pharyngitis, meningitis. Vital signs: Pt. is afebrile, the remaining VS are WNL H&PE are most consistent with URI- no meningeal signs, oropharynx is not involved, no evidence of bacterial infection at this time. ORDERS: - CBC, CMP, Troponin and Lipase: all WNL/unremarkable. ED INTERVENTIONS: None required at this time. --PT. EDUCATION: Discussed antibiotic resistance with inappropriate prescribing of antibiotics for viral illnesses. Discussed signs and symptoms to indicate viral illness versus bacterial illness. DISCHARGE: At this time pt. is stable for d/c to home. Will provide printed patient care instructions, and any necessary prescriptions. Care plan and follow up instructions have been discussed with the patient prior to discharge. Labs Test 10/10/18 15:50 White Blood Count 5.2 K/UL (4.8-10.8) Red Blood Count 4.78 M/UL (4.70-6.10) Hemoglobin 15.1 G/DL (14.2-18.0) Hematocrit 44.2 % (42.0-52.0) Mean Corpuscular Volume 92 FL (80-99) Mean Corpuscular Hemoglobin 31.5 PG (27.0-31.0) Mean Corpuscular Hemoglobin Concent 34.2 G/DL (32.0-36.0) Red Cell Distribution Width 12.0 % (11.6-14.8) Platelet Count 190 K/UL (150-450) Mean Platelet Volume 6.2 FL (6.5-10.1) Neutrophils (%) (Auto) 67.0 % (45.0-75.0) Lymphocytes (%) (Auto) 22.9 % (20.0-45.0) Monocytes (%) (Auto) 6.4 % (1.0-10.0) Eosinophils (%) (Auto) 1.9 % (0.0-3.0) Basophils (%) (Auto) 1.8 % (0.0-2.0) Sodium Level 138 MMOL/L (136-145) Potassium Level 4.0 MMOL/L (3.5-5.1) Chloride Level 102 MMOL/L (98-107) Carbon Dioxide Level 26 MMOL/L (21-32) Anion Gap 10 mmol/L (5-15) Blood Urea Nitrogen 13 mg/dL (7-18) Creatinine 1.3 MG/DL (0.55-1.30) Estimat Glomerular Filtration Rate > 60 mL/min (>60) Glucose Level 113 MG/DL (74-106) Calcium Level 9.6 MG/DL (8.5-10.1) Total Bilirubin 0.5 MG/DL (0.2-1.0) Aspartate Amino Transf (AST/SGOT) 20 U/L (15-37) Alanine Aminotransferase (ALT/SGPT) 35 U/L (12-78) Alkaline Phosphatase 73 U/L (46-116) Troponin I 0.000 ng/mL (0.000-0.056) Total Protein 7.7 G/DL (6.4-8.2) Albumin 3.6 G/DL (3.4-5.0) Globulin 4.1 g/dL Albumin/Globulin Ratio 0.9 (1.0-2.7) Lipase 89 U/L (73-393) EKG Diagnostic Results EP Interpretation: Dr. Moe Rate: normal - 64 bpm Rhythm: NSR ST Segments: no acute changes ASA given to the pt in ED: No PA Scribe Text This Interpretation was scribed by KIRT Dixon. Chest X-Ray Diagnostic Results Chest X-Ray Diagnostic Results : Chest X-Ray Ordered: Yes # of Views/Limited/Complete: 1 View Indication: Chest Pain EP Interpretation: Yes KIRT Xray: Interpretation reviewed, by supervising MD, and agrees with findings. Interpretation: no consolidation, no effusion, no pneumothorax, no acute cardiopulmonary disease Impression: No acute disease Electronically Signed by: Nessa Dixon PA-C Last Vital Signs Date Time Temp Pulse Resp B/P (MAP) Pulse Ox O2 Delivery O2 Flow Rate FiO2 10/10/18 15:33 98.1 64 13 158/88 97 Room Air 10/10/18 15:33 97 Disposition: HOME, SELF-CARE Condition: Stable Scripts Methocarbamol* (ROBAXIN-750*) 750 Mg Tablet 750 MG PO QID for 7 Days, #28 TAB 0 Refills Prov: Nessa Dixon 10/10/18 Referrals: NON PHYSICIAN (PCP) Patient Instructions: Back Pain, Adult, [id number], Upper Respiratory Infection, Adult Additional Instructions: Take medications as directed. Follow up with a Primary Care Provider in 3-5 days, even if your symptoms have resolved. --Please review list of primary care clinics, if you do not already have a primary care provider Return sooner to ED if new symptoms occur, or current symptoms become worse. - Please note that this Emergency Department Report was dictated using [employer] tinner technology software, occasionally this can lead to erroneous entry secondary to interpretation by the dictation equipment. Nessa Dixon Oct 10, 2018 16:49
[2018-10-10] MEDS ORDERED: ROBAXIN-750750 MG PO (16:51)
[2018-10-10 16:54] VITALS: BP 144/83
--- NOTE | 2018-10-11 08:51 | Diagnostic Imaging Report ---
Indication: Chest pain Comparison: 09/11/2017 A single view chest radiograph was obtained. Findings: Cardiomediastinal appearance is within normal limits for age. The lungs are clear. Pulmonary vascularity is appropriate. The diaphragmatic contour is smooth and costophrenic angles are sharp. No pleural effusions are identified. The bones are unremarkable. Impression: No acute findings
--- NOTE | 2018-10-11 15:57 | Cardiology Report ---
APPROVED REPORT EKG Measurement Heart [id number] [place] [id number] Normal sinus rhythm Normal ECG
== END 2018-10-10 17:10 | disposition home or self-care (01) ==
LOC: EMR 15:46
DX: J06.9 Acute upper respiratory infection, unspecified (principal); G89.29 Other chronic pain; M54.5 Low back pain; Z88.0 Allergy status to penicillin
CPT/HCPCS: 36415; 71045; 80053; 83690; 84484; 85025; 93005; 96361; 96374; 99284; J1885

== ENCOUNTER 2020-03-17 13:59 | Emergency (ER) | payer MEDICAID ==
[~2020-03-17] VITALS: Ht 175.3 cm; Wt 89.4 kg
[~2020-03-17 13:59] MED LIST changes: +LEVAQUIN750 MG ORAL; +ROBAXIN-750750 MG PO
[2020-03-17 14:21] VITALS: BP 115/78
[2020-03-17] MEDS ORDERED: Omnipaque-300 100ml vial INJ PRN (14:30)
[2020-03-17] MEDS ORDERED: Ketorolac 30mg Inj IV ONE (14:30)
[2020-03-17 15:24] LABS: BASOPHILS % (AUTO) 2.2 % (0.0-2.0); EOSINOPHILS % (AUTO) 3.7 % (0.0-3.0); HEMATOCRIT 44.5 % (42.0-52.0); HEMOGLOBIN 15.1 G/DL (14.2-18.0); LYMPHOCYTES % (AUTO) 34.4 % (20.0-45.0); MEAN CORPUSCULAR VOLUME 97 FL (80-99); MONOCYTES % (AUTO) 10.2 % (1.0-10.0); NEUTROPHILS % (AUTO) 49.4 % (45.0-75.0); PLATELET COUNT 222 K/UL (150-450); RED BLOOD COUNT 4.59 M/UL (4.70-6.10); RED CELL DISTRIBUTION WIDTH 12.1 % (11.6-14.8); WHITE BLOOD COUNT 3.6 K/UL (4.8-10.8)
[2020-03-17 15:30] LABS: INR 1.1 (0.9-1.1)
[2020-03-17 15:35] LABS: ANION GAP 13 mmol/L (5-15); BLOOD UREA NITROGEN 14 mg/dL (7-18); CALCIUM 9.7 MG/DL (8.5-10.1); CARBON DIOXIDE 25 MMOL/L (21-32); CHLORIDE 100 MMOL/L (98-107); CREATININE 1.3 MG/DL (0.55-1.30); POTASSIUM 4.3 MMOL/L (3.5-5.1); SODIUM 138 MMOL/L (136-145)
[2020-03-17 15:39] LABS: ALANINE AMINOTRANSFERASE 32 U/L (12-78); ALBUMIN 4.1 G/DL (3.4-5.0); ALBUMIN/GLOBULIN RATIO 1.1 (1.0-2.7); ALKALINE PHOSPHATASE 80 U/L (46-116); ASPARTATE AMINO TRANSFERASE 21 U/L (15-37); BILIRUBIN,TOTAL 0.8 MG/DL (0.2-1.0); CREATINE KINASE 62 U/L (26-308)
--- NOTE | 2020-03-17 15:48 | Emergency Room Report ---
History of Present Illness General Chief Complaint: Abdominal Pain Source: Patient Present Illness HPI 65-year-old male with no significant past medical history here complaining of 3 days of epigastric and left upper quadrant abdominal pain, rating it 7 out of 10 without radiation. Reports that the symptoms started after he had spicy chili however reports that he has had spicy chili before and is the first time the pain continues. Patient has taken [id number] remedies with minimal relief. Denies any nausea, vomiting, acid reflux. Denies any diarrhea however reports that he has always been dealing with constipation. Last bowel movement was yesterday. Denies any blood in stool. Has had 1 colonoscopy before and was told that he needs to get one soon. Denies any weight loss, fever and chills, night sweats. Denies urinary symptoms, cough or congestion, chest pain , shortness of breath, loss of taste and smell. Is sitting comfortably with stable vital signs. Denies tobacco smoke, drug use, marijuana use, alcohol intake Allergies: Coded Allergies: PENICILLINS (Verified Allergy, Severe, RASH, 06/15/17) DONT REMEMBER REACTION. LONG TIME AGO PER PATIENT COVID-19 Screening Contact w/high risk pt: No Recent Travel to affected area: No Experienced COVID-19 symptoms?: No COVID-19 Testing performed [employer]: No COVID-19 Screening: Negative COVID-19 COVID-19 Testing Source: [facility] Patient History Past Medical History: see triage record Past Surgical History: none Pertinent Family History: none Immunizations: UTD Reviewed Nursing Documentation: PMH: Agreed; PSxH: Agreed Nursing Documentation-PMH Past Medical History: No History, Except For Hx Cardiac Problems: No - HIV+ Hx Cancer: No Hx Gastrointestinal Problems: No Hx Neurological Problems: No - leg surgery Review of Systems All Other Systems: negative except mentioned in HPI Physical Exam Vital Signs Date Time Temp Pulse Resp B/P (MAP) Pulse Ox O2 Delivery O2 Flow Rate FiO2 03/17/20 14:06 98.1 106 18 118/81 (93) 96 Room Air 03/17/20 14:21 98 Sp02 EP Interpretation: reviewed, normal General Appearance: no apparent distress, alert, GCS 15, non-toxic Head: normocephalic, atraumatic Eyes: bilateral eye normal inspection, bilateral eye PERRL ENT: hearing grossly normal, normal pharynx, no angioedema, normal voice Neck: full range of motion, supple/symm/no masses Respiratory: chest non-tender, lungs clear, normal breath sounds, no rhonchi, no retraction, speaking full sentences Cardiovascular #1: regular rate, rhythm, no edema, no murmur Gastrointestinal: normal bowel sounds, non tender, soft, no mass, no organomegaly, no peritonitis, no bruit, non-distended, no guarding, no hernia, no pulsatile mass, no rebound Rectal: deferred Genitourinary: no CVA tenderness Musculoskeletal: back normal Neurologic: alert, motor strength/tone normal, oriented x3, sensory intact, responsive, speech normal Psychiatric: judgement/insight normal, memory normal, mood/affect normal, no suicidal/homicidal ideation Skin: no rash Lymphatic: no adenopathy Medical Decision Making PA Attestation All my diagnosis and treatment plans were reviewed ad discussed with my supervising physician Dr. Moe Diagnostic Impression: Primary Impression: Gastritis Additional Impression: Colitis ER Course 65-year-old male with no significant past medical history here complaining of 3 days of epigastric and left upper quadrant abdominal pain, rating it 7 out of 10 without radiation. Reports that the symptoms started after he had spicy chili however reports that he has had spicy chili before and is the first time the pain continues. Patient has taken [id number] remedies with minimal relief. Denies any nausea, vomiting, acid reflux. Denies any diarrhea however reports that he has always been dealing with constipation. Last bowel movement was yesterday. Denies any blood in stool. Has had 1 colonoscopy before and was told that he needs to get one soon. Denies any weight loss, fever and chills, night sweats. Denies urinary symptoms, cough or congestion, chest pain , shortness of breath, loss of taste and smell. Is sitting comfortably with stable vital signs. Denies tobacco smoke, drug use, marijuana use, alcohol intake Ddx considered but are not limited to: appendicitis, cholecystis, gastritis, gastroenteritis, UTI, pyelonephritis, SBO, diverticulitis, influenza with GI manifestation, NH, colon cancer Vital signs: are WNL, pt. is afebrile H&PE are most consistent with: Gastritis, colitis ORDERS: abdominal CT, abdominal pain set, EKG, omeprazole, Zofran, Tylenol, Colace ED INTERVENTIONS: NS bolus, Zofran, Pepcid, Toradol DISCHARGE: At this time pt. is stable for d/c to home. Will provide printed patient care instructions, and any necessary prescriptions. Care plan and follow up instructions have been discussed with the patient prior to discharge. Increase oral hydration and fiber intake, take medication as directed, follow- up with your primary doctor for referral to garage door hanger, colonoscopy and further evaluation, if worsening symptoms return to the emergency room. Avoid eating spicy acidic food. CT/MRI/US Diagnostic Results CT/MRI/US Diagnostic Results : Imaging Test Ordered: CT abdomen pelvis with contrast Impression Colitis noted no other abnormality Last Vital Signs Date Time Temp Pulse Resp B/P (MAP) Pulse Ox O2 Delivery O2 Flow Rate FiO2 03/17/20 15:34 98.1 03/17/20 14:21 100 16 115/78 98 Room Air 03/17/20 14:21 98 Disposition: HOME, SELF-CARE Condition: Stable Referrals: NON PHYSICIAN (PCP) Patient Instructions: Colitis, Gastritis, Adult Additional Instructions: Increase oral hydration and fiber intake, take medication as directed, follow- up with your primary doctor for referral to garage door h[facility], colonoscopy and further evaluation, if worsening symptoms return to the emergency room. Avoid eating spicy acidic food. Rafat Jon Mar 17, 2020 15:48
[2020-03-17 16:34] VITALS: BP 118/70
[2020-03-17 16:50] LABS: APPEARANCE,URINE CLEAR; BILIRUBIN, URINE NEGATIVE (NEGATIVE); COLOR,URINE PALE YELLOW; GLUCOSE, URINE (UA) NEGATIVE (NEGATIVE); KETONES,URINE NEGATIVE (NEGATIVE); LEUKOCYTE ESTERASE ,URINE NEGATIVE (NEGATIVE); NITRITE,URINE NEGATIVE (NEGATIVE); PH,URINE 5 (4.5-8.0); PROTEIN,URINE NEGATIVE (NEGATIVE); UROBILINOGEN,URINE NORMAL MG/DL (0.0-1.0)
--- NOTE | 2020-03-17 16:58 | Diagnostic Imaging Report ---
Clinical Indication: Epigastric and left upper quadrant abdominal pain Technique: No oral contrast utilized, per emergency room physician request IV administration nonionic contrast. Venous phase spiral acquisition obtained through the abdomen and pelvis. Multiplanar reconstructions were generated. Total dose length product 662 mGycm. CTDIvol(s) 18 mGy. Dose reduction achieved using automated exposure control Comparison: none Findings: Lack of enteric contrast limits assessment of the GI tract. Normal appendix. There is colonic diverticulosis. There is very questionable slight stranding of the fat surrounding the proximal descending colon. There do not appear to be diverticula in this region, however. No small bowel distention. No free or loculated intraperitoneal gas or fluid is evident. There is a small fat-containing left inguinal hernia. The distal esophagus, stomach, duodenum are unremarkable. There is some haziness of the fat surrounding the origins of the celiac axis and especially the superior mesenteric artery. The liver, gallbladder, bile ducts, pancreas, spleen, adrenals, kidneys are unremarkable. No retroperitoneal or mesenteric mass or adenopathy. No pelvic mass or adenopathy. The prostate is enlarged. Included lung bases demonstrate small bullae. There is some mosaic perfusion pattern. The bones demonstrate degenerative spondylosis changes. Impression: Possible slight stranding of the fat surrounding the proximal descending colon. If real could represent a focal area of colitis. Acute diverticulitis also possible but less likely as there do not appear to be diverticula in this area. Colonic diverticulosis distally Unusual stranding of the fat surrounding the origin of the superior mesenteric artery and to a lesser extent the celiac axis. This is nonspecific, could just represent some focal inflammation. Arteritis less likely as there does not appear to be significant arterial wall thickening. COPD changes of the lung bases Degenerative lumbar spondylosis incidentally noted The CT scanner at [facility] is accredited by the [employer] and the scans are performed using protocols designed to limit radiation exposure to as low as reasonably achievable to attain images of sufficient resolution adequate for diagnostic evaluation.
[2020-03-17] MEDS ORDERED: TYLENOL EXTRA500 MG ORAL (17:09)
[2020-03-17] MEDS ORDERED: ZOFRAN4 M1 ORAL (17:09)
[2020-03-17] MEDS ORDERED: COLACE100 MG ORAL (17:09)
[2020-03-17] MEDS ORDERED: OMEPRAZOLE20 M3 ORAL (17:09)
[2020-03-17 17:19] VITALS: BP 123/65
--- NOTE | 2020-03-17 20:44 | Diagnostic Imaging Report ---
Indication: Chest pain Technique: One view of the chest Comparison: 10/10/2018 Findings: There is some atelectasis at the left lung base. The lungs pleural spaces are otherwise clear. The heart size is upper limits of normal. No significant change Impression: Left basilar atelectasis. No acute process
== END 2020-03-17 17:19 | disposition home or self-care (01) ==
LOC: EMR 14:42
DX: K29.70 Gastritis, unspecified, without bleeding (principal); K52.9 Noninfective gastroenteritis and colitis, unspecified; Z88.0 Allergy status to penicillin; B20 Human immunodeficiency virus [HIV] disease
CPT/HCPCS: 36415; 71045; 74177; 80053; 80307; 81003; 82550; 83690; 84484; 85025; 85610; 85730; 93005; 96361; 96374; 96375; J1885; J2405; J7030; Q9967; S0028; Z7502; 99284